=== PATIENT | female | born 1950 | race Caucasian/White ===

== ENCOUNTER 2023-12-27 15:14 | Observation (INO) | payer MEDICARE ==
[2023-12-27] MEDS ORDERED: BABY ASPIRIN 81 MG CHEW ONE (15:41)
[2023-12-27] MEDS: BABY ASPIRIN 81 MG CHEW PO ONE (15:44)
[2023-12-27 16:18] LABS: Absolute Neutrophil Ct (ANC) 3.98 x10^3/uL (1.56-6.13); BASOPHIL % 0.6 % (0.1-1.2); Basophil (Absolute #) 0.04 x10^3/uL (0.01-0.08); Eosinophil % 1.3 % (0.7-5.8); Eosinophil (Absolute #) 0.09 x10^3/uL (0.04-0.36); Hematocrit 37.8 % (34.1-44.9); Hemoglobin 12.3 g/dL (11.2-15.7); IMMATURE GRAN # 0.01 x10^3u/L (0.001-0.031); IMMATURE GRAN % 0.1 % (0.001-0.429); Lymphocyte (Absolute #) 2.49 x10^3/uL (1.18-3.74); Lymphocytes % 34.9 % (19.3-51.7); Mean Cell Volume 94.5 fL (79.4-94.8); Mean Corpuscular Hemoglobin 30.8 pg (25.6-32.2); Mean Corpuscular Hgb Concent. 32.5 g/dL (32.2-35.5); Mean Platelet Volume 9.3 fL (9.4-12.3); Monocyte (Absolute #) 0.53 x10^3/uL (0.24-0.86); Monocytes % 7.4 % (4.7-12.5); Neutrophil % 55.7 % (34.0-71.1); Platelet Count 375 x10^3/uL (182-369); Red Cell Distribution Width 13.9 % (11.7-14.4); White Blood Count 7.1 x10^3/uL (3.98-10.04)
--- NOTE | 2023-12-27 16:28 | ERPHSYRPT ---
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, states that all her valves leak and they cannot replace them, pulses normal, skin ashen in color, denies N&V, states that she gets extremely short of breath when her chest pain begins, no edema noted, pt states that her heart rate is always in the 80's but today it is in the 40's, architectural manager is Leopoldo Badillo;; at the [facility] [phone] Physician History: 73-year-old female with history of coronary artery disease with stenting, aortic stenosis, cardiac injury secondary to radiations for Hodgkin's lymphoma presented in the ER with 2 to 3 days history of substernal chest pain moderate to severe sharp with associated shortness of breath at times of chest pain. Patient was having earlier moderate intensity substernal chest pain, took 2 nitros and her pain is completely resolved now. Denies any difficulty breathing at present. No chest pain currently. Denies any significant aggravating factors for chest pain. No recent cardiac cath or stress test done. No fever chills or cough reported. Aspirin Treatment Today: unknown Allergies/Adverse Reactions: No Known Drug Allergies Allergy (Verified 12/27/23 15:32) Home Medications: Aspirin 81 mg PO DAILY 12/27/23 [History] Clopidogrel Bisulfate [Clopidogrel] 75 mg PO DAILY 12/27/23 [History] Isosorbide Mononitrate [Isosorbide Mononitrate ER] 30 mg PO HS 12/27/23 [History] Metoprolol Succinate 100 mg [Toprol Xl 100 MG] 100 mg PO BID 12/27/23 [History] PANTOPRAZOLE 40 mg Tablet [Protonix 40MG Tablet] 40 mg PO QAM 12/27/23 [History] Rosuvastatin Calcium 5 mg PO HS 12/27/23 [History] Torsemide 20 mg [Demadex 20 mg] 20 mg PO DAILY 12/27/23 [History] Hx Influenza Vaccination/Date Given: Yes Hx Pneumococcal Vaccination/Date Given: Yes Immunizations Up to Date: Yes Travel Risk - International Travel Have you traveled outside of the country in past 3 weeks: No - Emerging Infectious Disease Are you exhibiting symptoms associated with any current EIDs: No - Review of Systems Constitutional: No Symptoms Eyes: No Symptoms Ears, Nose, & Throat: No Symptoms Respiratory: Dyspnea Cardiac: Chest Pain Abdominal/Gastrointestinal: No Symptoms Genitourinary Symptoms: No Symptoms Musculoskeletal: No Symptoms Skin: No Symptoms Neurological: No Symptoms Endocrine: No Symptoms Hematologic/Lymphatic: No Symptoms Immunological/Allergic: No Symptoms - Past Medical History Pertinent Past Medical History: Yes Cardiac History: Other Other Medical History: hodgkins, 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 - Past Surgical History Past Surgical History: Yes Cardiac: CABG Gastrointestinal: Cholecystectomy Female Surgical History: Hysterectomy - Social History Smoking Status: Never smoker Exposure to second hand smoke: No Drug Use: none - Social Determinants of Health Will the patient participate in the screening: Yes Do you worry about a steady place to live?: No Do you have any problems with any of the following?: No known problems In the past 12 months,have you had to go without utilities?: No Transportation Issues: No Has anyone in your support network made you feel unsafe?: No Have you or anyone in your house had to go without enough: No - Nursing Vital Signs Nursing Vital Signs: Initial Vital Signs Temperature 97.6 F 12/27/23 15:15 Pulse Rate 51 L 12/27/23 15:15 Respiratory Rate 20 12/27/23 15:15 Blood Pressure 166/58 12/27/23 15:15 O2 Sat by Pulse Oximetry 99 12/27/23 15:15 Pain Scale Pain Intensity 0 - Physical Exam General Appearance: no apparent distress Eye Exam: PERRL/EOMI Ears, Nose, Throat Exam: normal ENT inspection Neck Exam: normal inspection, supple, full range of motion Respiratory Exam: normal breath sounds, lungs clear, No chest tenderness Cardiovascular Exam: normal heart sounds, bradycardia Gastrointestinal/Abdomen Exam: soft, normal bowel sounds, No tenderness Back Exam: normal inspection, normal range of motion Extremity Exam: normal inspection, normal range of motion Neurologic Exam: alert, oriented x 3, cooperative Skin Exam: normal color SpO2 Interpretation: normal SpO2: 96 O2 Delivery: Room Air - Course EKG Interpreted by Me: RATE (50), Sinus Rasta, NORMAL AXIS, prolonged QT interval, Non-specific ST Changes Ordered Tests: Active Orders 24 hr Category Date Time Status Bedrest ROUTINE Activity 12/27/23 20:09 Active Up With Assistance ROUTINE Activity 12/27/23 20:09 Active Call Admit Doctor for Orders ON ADMISSION Care 12/27/23 20:09 Active Delivery Tech STAT Care 12/27/23 15:28 Completed Code Status Order ROUTINE Care 12/27/23 20:09 Active EKG-ER Only STAT Care 12/27/23 15:27 Completed Fall Protocol ROUTINE Care 12/27/23 20:09 Active IV Insertion STAT Care 12/27/23 15:[address] in Observation ROUTINE Care 12/27/23 20:09 Active Telemetry q6h Care 12/27/23 20:09 Active Heart-Healthy Diet Diet 12/28/23 Breakfast Active CHEST 1 VIEW (PORTABLE) Stat Exams 12/27/23 15:28 Completed CBC W DIFF Stat Lab 12/27/23 16:00 Completed CMP Stat Lab 12/27/23 16:00 Completed NT PRO BNPII Stat Lab 12/27/23 16:00 Completed TROPONIN Q4H Lab 12/27/23 16:00 Completed TROPONIN Q4H Lab 12/27/23 19:25 Completed TROPONIN Q4H Lab 12/27/23 23:30 Ordered Pulse Oximetry CONTINUOUS RT 12/27/23 20:09 Active Transfer Order Routine Transfer 12/27/23 Completed Medication Summary Generic Name Dose Route Start Last Admin Trade Name Nancie PRN Reason Stop Dose Admin Aspirin 81 mg 12/28/23 10:00 Aspirin 81 Mg Tab.Chew PO 01/27/24 09:59 DAILY [facility] Clopidogrel Bisulfate 75 mg 12/28/23 10:00 Clopidogrel Bisulfate 75 Mg Tablet PO 01/27/24 09:59 DAILY [facility] Enoxaparin Sodium 40 mg 12/28/23 10:00 Enoxaparin Sodium 40 Mg/0.4 Ml Syringe SQ 01/27/24 09:59 DAILY [facility] Isosorbide Mononitrate 30 mg 12/27/23 22:00 Isosorbide Mononitrate 30 Mg Tab PO 01/26/24 21:59 HS [facility] Metoprolol Succinate 100 mg 12/27/23 22:00 Metoprolol Succinate 100 Mg Tablet.Sa PO 01/26/24 21:59 BID MIR[facility]DA Non-Formulary Medication 5 mg 12/27/23 22:00 Rosuvastatin Calcium [Rosuvastatin Calcium] PO 01/26/24 21:59 HS MIR[facility] Pantoprazole Sodium 40 mg 12/28/23 10:00 Protonix (Pantoprazole) 40 Mg Tablet PO 01/27/24 09:59 QAM [facility] Torsemide 20 mg 12/28/23 10:00 Torsemide 20 Mg Tablet PO 01/27/24 09:59 DAILY [facility] Discontinued Medications Generic Name Dose Route Start Last Admin Trade Name Freq PRN Reason Stop Dose Admin Aspirin 324 mg 12/27/23 15:27 12/27/23 15:44 Aspirin 81 Mg Tab.Chew PO 12/27/23 15:28 324 mg STAT ONE Administration Aspirin Confirm 12/27/23 15:41 Aspirin 81 Mg Tab.Chew Administered 12/27/23 15:42 Dose 324 mg .ROUTE .STK-MED ONE Metoprolol Succinate Confirm 12/27/23 21:59 Metoprolol Succinate 50 Mg Tablet.Sa Administered 12/27/23 22:00 Dose 100 mg PO .STK-MED ONE Lab/Rad Data: Laboratory Result Diagrams 12/27/23 16:00 12/27/23 16:00 Laboratory Results 12/27/23 12/27/23 12/27/23 Range/Units 19:25 16:00 16:00 WBC (3.98-10.04) x10^3/uL RBC (3.93-5.22) x10^6/uL Hgb (11.2-15.7) g/dL Hct (34.1-44.9) % MCV (79.4-94.8) fL MCH (25.6-32.2) pg MCHC (32.2-35.5) g/dL RDW (11.7-14.4) % Plt Count (182-369) x10^3/uL MPV (9.4-12.3) fL Gran % (34.0-71.1) % Immature Gran % (Auto) (0.001-0.429) % Nucleat RBC Rel Count (0.00-0.2) % Eos # (Auto) (0.04-0.36) x10^3/uL Immature Gran # (Auto) (0.001-0.031) x10^3u/L Absolute Lymphs (auto) (1.18-3.74) x10^3/uL Absolute Monos (auto) (0.24-0.86) x10^3/uL Absolute Nucleated RBC (0.00-0.012) x10^3u/L Lymphocytes % (19.3-51.7) % Monocytes % (4.7-12.5) % Eosinophils % (0.7-5.8) % Basophils % (0.1-1.2) % Absolute Granulocytes (1.56-6.13) x10^3/uL Basophils # (0.01-0.08) x10^3/uL Sodium 140 (135-145) mmol/L Potassium 3.4 L (3.5-5.1) mmol/L Chloride 104 (98-107) mmol/L Carbon Dioxide 25 (22-30) mmol/L Anion Gap 14.1 (5-15) MEQ/L BUN 18 H (7-17) mg/dL Creatinine 0.90 (0.52-1.04) mg/dL Estimated GFR 68.4 ML/MIN Glucose 143 H (74-106) mg/dL Calcium 9.6 (8.4-10.2) mg/dL Total Bilirubin 0.50 (0.2-1.3) mg/dL AST 29 (14-36) U/L ALT 18 (0-35) U/L Alkaline Phosphatase 83 (38-126) U/L Troponin I < 0.012 < 0.012 (0.000-0.033) ng/mL NT-Pro-B Natriuret Pep 860 (<300) pg/mL Serum Total Protein 7.1 (6.3-8.2) g/dL Albumin 4.1 (3.5-5.0) g/dL 12/27/23 Range/Units 16:00 WBC 7.1 (3.98-10.04) x10^3/uL RBC 4.00 (3.93-5.22) x10^6/uL Hgb 12.3 (11.2-15.7) g/dL Hct 37.8 (34.1-44.9) % MCV 94.5 (79.4-94.8) fL MCH 30.8 (25.6-32.2) pg MCHC 32.5 (32.2-35.5) g/dL RDW 13.9 (11.7-14.4) % Plt Count 375 H (182-369) x10^3/uL MPV 9.3 L (9.4-12.3) fL Gran % 55.7 (34.0-71.1) % Immature Gran % (Auto) 0.1 (0.001-0.429) % Nucleat RBC Rel Count 0.0 (0.00-0.2) % Eos # (Auto) 0.09 (0.04-0.36) x10^3/uL Immature Gran # (Auto) 0.01 (0.001-0.031) x10^3u/L Absolute Lymphs (auto) 2.49 (1.18-3.74) x10^3/uL Absolute Monos (auto) 0.53 (0.24-0.86) x10^3/uL Absolute Nucleated RBC 0.00 (0.00-0.012) x10^3u/L Lymphocytes % 34.9 (19.3-51.7) % Monocytes % 7.4 (4.7-12.5) % Eosinophils % 1.3 (0.7-5.8) % Basophils % 0.6 (0.1-1.2) % Absolute Granulocytes 3.98 (1.56-6.13) x10^3/uL Basophils # 0.04 (0.01-0.08) x10^3/uL Sodium (135-145) mmol/L Potassium (3.5-5.1) mmol/L Chloride (98-107) mmol/L Carbon Dioxide (22-30) mmol/L Anion Gap (5-15) MEQ/L BUN (7-17) mg/dL Creatinine (0.52-1.04) mg/dL Estimated GFR ML/MIN Glucose (74-106) mg/dL Calcium (8.4-10.2) mg/dL Total Bilirubin (0.2-1.3) mg/dL AST (14-36) U/L ALT (0-35) U/L Alkaline Phosphatase (38-126) U/L Troponin I (0.000-0.033) ng/mL NT-Pro-B Natriuret Pep (<300) pg/mL Serum Total Protein (6.3-8.2) g/dL Albumin (3.5-5.0) g/dL - Progress Progress: improved, re-examined Air Movement: good Progress Note: 12/27/23 17:37 73-year-old is evaluated for intermittent chest pain for the last couple of days. She had pain earlier and resolved after taking 2 nitros. Patient is given full dose aspirin. EKG is sinus bradycardia with no acute ST elevations or depressions. Chest x-ray negative for any acute cardiopulmonary findings reviewed by me, official report is pending. Normal white count, fairly unremarkable chemistries and negative initial troponin. Patient has multiple risk factors for CAD and does not have any recent cardiac workup done, would benefit with observation and trending of cardiac enzymes and possible cardiology consult. Discussed with Dr. Mills, reviewed history, workup and patient is being admitted for observation. I have discussed the results of workup with patient and family and plan of observation admission which they understand and agree. Blood Culture(s) Obtained: No Antibiotics given: No Discussed with Dr.: Other (Dr. Mills hospitalist) Will see patient in: hospital (observation) Counseled pt/family regarding: lab results, diagnosis, need for follow-up, rad results Medical Desision Making - Independent Historian Additional History obtained from: Spouse - Discussion of managment Care discussed with:: specialist Reviewed:: Test results Agreed on:: Treatment plan, place in obs Will see patient: in hospital - Diagnostic Testing Diagnostic test were ordered, analyzed, and reviewed by me: Yes Radiological Interpretation: Interpreted by me, Reviewed by me - Risk of complications The pt has a mod risk of morbidity or mortality based on: Need for prescription drug management The pt has a high risk of morbidity or mortality based on: Decision regarding hospitilization or escalation of hosp level of care - Departure Departure Disposition: Observation Clinical Impression: Chest pain, rule out acute myocardial infarction Condition: Stable Critical Care Time: No
[2023-12-27 16:41] LABS: ALBUMIN 4.1 g/dL (3.5-5.0); ANION GAP 14.1 MEQ/L (5-15); BILIRUBIN,TOTAL 0.5 mg/dL (0.2-1.3); Calcium 9.6 mg/dL (8.4-10.2); Creatinine 1 0.9 mg/dL (0.52-1.04); EST GLOMERULAR FILTRATION RATE 68.4 ML/MIN; Potassium 3.4 mmol/L (3.5-5.1); Total Protein 7.1 g/dL (6.3-8.2)
--- NOTE | 2023-12-27 19:16 | XRAY ---
Indication: Chest pain. Comparison: May 28, 2007 Portable chest inflated and clear. Heart not enlarged again with CABG. Bony thorax intact with now osteopenia and moderate degenerative changes, especially left shoulder. Impression: Nonacute chest with chronic features.
--- NOTE | 2023-12-27 21:42 | PCM.HP ---
History of Present Illness - Chief Complaint Chief Complaint: Chest pain rule out acute HI Date: 12/27/23 History of Present Illness: 73 years old very pleasant with past medical history significant for hypertension, Aortic valve stenosis, coronary artery disease s/p stenting and CABG, Hodgkin lymphoma s/p radiation prior history of stroke with residual left- sided weakness lives with her quite independent in her daily life came to the ER complaining of chest pain that started 4 days ago. She told me that she is having some off-and-on chest pain but not as severe as it started this time. It went up to more than 10 with sudden onset of shortness of breath as well. She took nitro that relieved her pain and it got better but reoccurred again next day. She further told me that her shortness of breath happened upon exertion otherwise at rest she is feeling comfortably fine. Her chest pain is completely gone by the time she came to ER. In the ER her vital signs were stable. All ER workup was essentially negative troponin was negative. Chest x-ray remained unremarkable. Patient admitted to rule out acute coronary syndrome. - Review of Systems All Other Systems: Reviewed and Negative (14 systems reviewed and marked ve except mentioned in CIRCLE) Medications & Allergies Home Medications: Home Medication List Aspirin 81 mg PO DAILY 12/27/23 [History Confirmed 12/27/23] Clopidogrel Bisulfate [Clopidogrel] 75 mg PO DAILY 12/27/23 [History Confirmed 12/27/23] Isosorbide Mononitrate [Isosorbide Mononitrate ER] 30 mg PO HS 12/27/23 [History Confirmed 12/27/23] Metoprolol Succinate 100 mg [Toprol Xl 100 MG] 100 mg PO BID 12/27/23 [History Confirmed 12/27/23] PANTOPRAZOLE 40 mg Tablet [Protonix 40MG Tablet] 40 mg PO QAM 12/27/23 [History Confirmed 12/27/23] Rosuvastatin Calcium 5 mg PO HS 12/27/23 [History Confirmed 12/27/23] Torsemide 20 mg [Demadex 20 mg] 20 mg PO DAILY 12/27/23 [History Confirmed 12/27/23] Allergies/Adverse Reactions: Allergies Allergy/AdvReac Type Severity Reaction Status Date / Time No Known Drug Allergies Allergy Verified 07/04/24 15:32 - Past Medical History Past Medical History: Yes Neurological History: Stroke ENT History: Cataracts Cardiac History: Congestive Heart Failure, Coronary Artery Disease, High Cholesterol, Hypertension, Other Respiratory History: No Pertinent History Endocrine Medical History: No Pertinent History Musculoskelatal History: No Pertinent History GI Medical History: Gallbladder Disease History: No Pertinent History Pyscho-Social History: No Pertinent History Reproductive Disorders: No Pertinent History Comment: hodgkins- 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 - Past Surgical History Past Surgical History: Yes Neuro Surgical History: No Pertinent History Cardiac History: CABG, Cardiac Stent Respiratory Surgery: No Pertinent History GI Surgical History: Cholecystectomy Female Surgical History: Hysterectomy Other Surgical History: exploritory surgery- for hodgkins Significant Family History: no pertinent family hx (No family history pertaining to this admission reported.) - Social History Smoking Status: Never smoker Exposure to second hand smoke: No Alcohol: None Drug Use: none - Social Determinants of Health Will the patient participate in the screening: Yes Do you worry about a steady place to live?: No Do you have any problems with any of the following?: No known problems In the past 12 months,have you had to go without utilities?: No Have you or anyone in your house had to go without enough: No Transportation Issues: No Has anyone in your support network made you feel unsafe?: No Does the patient want assistance with any of the above?: No - Physical Exam Vital Signs: Vital Signs - 24 hr Temp Pulse Resp BP BP Pulse Ox 12/27/23 20:43 97.1 F 49 L 15 136/65 95 12/27/23 19:30 46 L 16 140/54 99 12/27/23 19:01 45 L 12 129/49 96 12/27/23 18:31 45 L 17 131/46 95 12/27/23 18:01 45 L 14 133/49 95 12/27/23 17:40 96 12/27/23 17:31 46 L 18 134/46 95 12/27/23 17:01 46 L 17 142/54 96 12/27/23 16:31 49 L 20 132/69 94 L 12/27/23 16:01 48 L 17 96 12/27/23 16:00 49 L 16 95 12/27/23 15:50 50 L 17 96 12/27/23 15:48 50 L 16 96 12/27/23 15:15 97.6 F 51 L 20 166/58 99 Additional Findings: HEENT Old aged, average built in no distress NECK Supple,no thyromegaly, RESP Bilateral equal air entry without Crepts/Wheezes heard GIT Soft non tender,non distended Skin, No rah, no Bruises LEGS No Edema PSYCH Normal,m ood, judgement and insight NEURO AOX3, no focal deficit 12/27/23 21:39 Results - Labs Lab/Micro Results: Lab Results-Last 24 Hours 12/27/23 12/27/23 12/27/23 Range/Units 16:00 16:00 16:00 WBC 7.1 (3.98-10.04) x10^3/uL RBC 4.00 (3.93-5.22) x10^6/uL Hgb 12.3 (11.2-15.7) g/dL Hct 37.8 (34.1-44.9) % MCV 94.5 (79.4-94.8) fL MCH 30.8 (25.6-32.2) pg MCHC 32.5 (32.2-35.5) g/dL RDW 13.9 (11.7-14.4) % Plt Count 375 H (182-369) x10^3/uL MPV 9.3 L (9.4-12.3) fL Gran % 55.7 (34.0-71.1) % Immature Gran % (Auto) 0.1 (0.001-0.429) % Nucleat RBC Rel Count 0.0 (0.00-0.2) % Eos # (Auto) 0.09 (0.04-0.36) x10^3/uL Immature Gran # (Auto) 0.01 (0.001-0.031) x10^3u/L Absolute Lymphs (auto) 2.49 (1.18-3.74) x10^3/uL Absolute Monos (auto) 0.53 (0.24-0.86) x10^3/uL Absolute Nucleated RBC 0.00 (0.00-0.012) x10^3u/L Lymphocytes % 34.9 (19.3-51.7) % Monocytes % 7.4 (4.7-12.5) % Eosinophils % 1.3 (0.7-5.8) % Basophils % 0.6 (0.1-1.2) % Absolute Granulocytes 3.98 (1.56-6.13) x10^3/uL Basophils # 0.04 (0.01-0.08) x10^3/uL Sodium 140 (135-145) mmol/L Potassium 3.4 L (3.5-5.1) mmol/L Chloride 104 (98-107) mmol/L Carbon Dioxide 25 (22-30) mmol/L Anion Gap 14.1 (5-15) MEQ/L BUN 18 H (7-17) mg/dL Creatinine 0.90 (0.52-1.04) mg/dL Estimated GFR 68.4 ML/MIN Glucose 143 H (74-106) mg/dL Calcium 9.6 (8.4-10.2) mg/dL Total Bilirubin 0.50 (0.2-1.3) mg/dL AST 29 (14-36) U/L ALT 18 (0-35) U/L Alkaline Phosphatase 83 (38-126) U/L Troponin I < 0.012 (0.000-0.033) ng/mL NT-Pro-B Natriuret Pep 860 (<300) pg/mL Serum Total Protein 7.1 (6.3-8.2) g/dL Albumin 4.1 (3.5-5.0) g/dL 12/27/23 Range/Units 19:25 WBC (3.98-10.04) x10^3/uL RBC (3.93-5.22) x10^6/uL Hgb (11.2-15.7) g/dL Hct (34.1-44.9) % MCV (79.4-94.8) fL MCH (25.6-32.2) pg MCHC (32.2-35.5) g/dL RDW (11.7-14.4) % Plt Count (182-369) x10^3/uL MPV (9.4-12.3) fL Gran % (34.0-71.1) % Immature Gran % (Auto) (0.001-0.429) % Nucleat RBC Rel Count (0.00-0.2) % Eos # (Auto) (0.04-0.36) x10^3/uL Immature Gran # (Auto) (0.001-0.031) x10^3u/L Absolute Lymphs (auto) (1.18-3.74) x10^3/uL Absolute Monos (auto) (0.24-0.86) x10^3/uL Absolute Nucleated RBC (0.00-0.012) x10^3u/L Lymphocytes % (19.3-51.7) % Monocytes % (4.7-12.5) % Eosinophils % (0.7-5.8) % Basophils % (0.1-1.2) % Absolute Granulocytes (1.56-6.13) x10^3/uL Basophils # (0.01-0.08) x10^3/uL Sodium (135-145) mmol/L Potassium (3.5-5.1) mmol/L Chloride (98-107) mmol/L Carbon Dioxide (22-30) mmol/L Anion Gap (5-15) MEQ/L BUN (7-17) mg/dL Creatinine (0.52-1.04) mg/dL Estimated GFR ML/MIN Glucose (74-106) mg/dL Calcium (8.4-10.2) mg/dL Total Bilirubin (0.2-1.3) mg/dL AST (14-36) U/L ALT (0-35) U/L Alkaline Phosphatase (38-126) U/L Troponin I < 0.012 (0.000-0.033) ng/mL NT-Pro-B Natriuret Pep (<300) pg/mL Serum Total Protein (6.3-8.2) g/dL Albumin (3.5-5.0) g/dL - Radiology Impressions Radiology Exams & Impressions: Radiology Procedures Category Date Time Status CHEST 1 VIEW (PORTABLE) Stat Exams 12/27/23 15:28 Completed ECHO W/2D AND DOPPLER [US] Routine Exams 12/27/23 21:35 Ordered Assessment/Plan (1) Chest pain, rule out acute myocardial infarction Current Visit: Yes Status: Acute Code(s): R07.9 - CHEST PAIN, UNSPECIFIED (2) Coronary artery disease Current Visit: Yes Status: Acute Code(s): I25.10 - ATHSCL HEART DISEASE OF [place] CORONARY ARTERY W/O ANG PCTRS (3) History of stroke Current Visit: Yes Status: Acute Code(s): Z86.73 - PRSNL HX OF TIA (TIA), AND CEREB INFRC W/O RESID DEFICITS Telemedicine Encounter - Telemedicine Encounter Telemedicine Encounter: "The entirety of this encounter was performed via Telemedicine" This visit was performed using real-time audio and video connection between my location and thepatients locationwith the assistance of a surrogateat the patients location. Written or verbal consent was obtained from the patient/guardian to perform this visit using[employer] Mult[employer] technology. Any patient questions regarding the telemedicine interaction were answered. Acute chest pain patient admitted with chest pain for 2 to 3 days duration Currently chest pain-free Troponin x 2 is negative Keep admit on telemetry Will consult cardiology in the morning Will follow-up echocardiogram Shortness of breath Rest x-ray unremarkable Ruled out for ACS Will check D-dimer if running high will rule out for pulmonary embolism Follow-up echocardiogram, Last ECHO wasd one back in 02/2023 Resumed home Torsemide Coronary artery disease/aortic stenosis S/p stenting, CABG Continue aspirin Plavix and beta-irish Hodgkin's lymphoma S/p radiation Prior history of stroke With some residual left-sided weakness not significant Continue aspirin Plavix and statins Hyperlipidemia Continue statins GERD Continue with pantoprazole DVT prophylaxis SCD/Lovenox GI prophylaxis pantoprazole CODE STATUS full Discharge planning plan clinical stability. I have reviewed patient lab work and imaging in detail question and concerns were addressed
[2023-12-27] MEDS ORDERED: Toprol Xl 50 MG PO ONE (21:59)
[2023-12-27] MEDS ORDERED: Imdur 30 MG ONE (22:00)
[2023-12-27] MEDS: Toprol Xl 100 MG PO SCH (22:20)
[2023-12-27] MEDS: PLAVIX Tablet PO SCH (22:20)
[2023-12-27] MEDS: Imdur 30 MG PO SCH (22:24)
[2023-12-27] MEDS: NON-FORMULARY ITEM (Rosuvastatin Calcium [Rosuvastatin Calcium] 5 MG Tablet) PO SCH (22:27)
[2023-12-28 05:02] LABS: Hematocrit 37.5 % (34.1-44.9); Hemoglobin 12.2 g/dL (11.2-15.7); Mean Cell Volume 96.2 fL (79.4-94.8); Mean Corpuscular Hemoglobin 31.3 pg (25.6-32.2); Mean Corpuscular Hgb Concent. 32.5 g/dL (32.2-35.5); Mean Platelet Volume 9.3 fL (9.4-12.3); Platelet Count 343 x10^3/uL (182-369); Red Cell Distribution Width 13.8 % (11.7-14.4); White Blood Count 8.6 x10^3/uL (3.98-10.04)
[2023-12-28 05:44] LABS: Calcium 9.5 mg/dL (8.4-10.2); Creatinine 1 1.06 mg/dL (0.52-1.04); EST GLOMERULAR FILTRATION RATE 56.2 ML/MIN; TSH, 3RD Generation 4.894 mIU/L (0.470-4.680)
[2023-12-28 05:51] LABS: ANION GAP 10.6 MEQ/L (5-15); Potassium 3.6 mmol/L (3.5-5.1)
[2023-12-28 06:52] VITALS: BP 144/61; PULSE 42; RESP 13; TEMP 97; O2SAT 96
--- NOTE | 2023-12-28 08:32 | PCM.DS ---
Discharge Summary Date of Admission: 12/27/23 20:00 Date of Discharge: 12/28/23 Admitting Physician: LANI DURAN MD Primary Care Provider: JOSE MICHELLE Allergies Allergies No Known Drug Allergies Allergy (Verified 12/27/23 15:32) Hospital Summary - Hospital Course Hospital Course: 12/28/23 73 years old very pleasant with past medical history significant for hypertension, Aortic valve stenosis, coronary artery disease s/p stenting and CABG, Hodgkin lymphoma s/p radiation prior history of stroke with residual left- sided weakness. She lives with her , quite independent in her daily life, came to the ER on 12/27/23 complaining of chest pain that started 4 days ago. Reported some off-and-on chest pain but not as severe as it started this time. It went up to more than 10 with sudden onset of shortness of breath as well. She took nitro that relieved her pain and it got better but reoccurred again next day. Shortness of breath happened upon exertion otherwise at rest she is feeling comfortably fine. Her chest pain was completely gone by the time she came to ER. In the ER her vital signs were stable. All ER workup was essentially negative troponin x3 was negative. Chest x-ray remained unremarkable. Patient admitted to rule out acute coronary syndrome. Echo pending. She is concerned about her low HR and she does take a beta irish. Today she explained she has slight left side chest pain w/o radiation at rest, otherwise doing well and SOB resolved. Discussed labs and radiology findings. Discussed she will need to call billing administrator for an OP stress test and appointment as soon as possible. She will call today after d/c she reported. She denies SOB, abd. pain, N/V/D. - Vitals & Intake/Output Vital Signs: Vital Signs Temperature 97 F 12/28/23 06:50 Pulse Rate 42 L 12/28/23 06:50 Respiratory Rate 13 12/28/23 06:50 Blood Pressure 144/61 12/28/23 06:50 O2 Sat by Pulse Oximetry 96 12/28/23 07:58 Intake & Output: Intake & Output 12/25/23 12/26/23 12/27/23 12/28/23 11:59 11:59 11:59 11:59 Intake Total 420 Balance 420 Weight 88.7 kg - Lab Result Diagrams: 12/28/23 04:58 07/05/24 04:58 Lab Results-Last 24 Hrs: Lab Results-Last 24 Hours 12/27/23 12/27/23 12/27/23 Range/Units 16:00 16:00 16:00 WBC 7.1 (3.98-10.04) x10^3/uL RBC 4.00 (3.93-5.22) x10^6/uL Hgb 12.3 (11.2-15.7) g/dL Hct 37.8 (34.1-44.9) % MCV 94.5 (79.4-94.8) fL MCH 30.8 (25.6-32.2) pg MCHC 32.5 (32.2-35.5) g/dL RDW 13.9 (11.7-14.4) % Plt Count 375 H (182-369) x10^3/uL MPV 9.3 L (9.4-12.3) fL Gran % 55.7 (34.0-71.1) % Immature Gran % (Auto) 0.1 (0.001-0.429) % Nucleat RBC Rel Count 0.0 (0.00-0.2) % Eos # (Auto) 0.09 (0.04-0.36) x10^3/uL Immature Gran # (Auto) 0.01 (0.001-0.031) x10^3u/L Absolute Lymphs (auto) 2.49 (1.18-3.74) x10^3/uL Absolute Monos (auto) 0.53 (0.24-0.86) x10^3/uL Absolute Nucleated RBC 0.00 (0.00-0.012) x10^3u/L Lymphocytes % 34.9 (19.3-51.7) % Monocytes % 7.4 (4.7-12.5) % Eosinophils % 1.3 (0.7-5.8) % Basophils % 0.6 (0.1-1.2) % Absolute Granulocytes 3.98 (1.56-6.13) x10^3/uL Basophils # 0.04 (0.01-0.08) x10^3/uL D-Dimer (0.0-0.50) mg/L Sodium 140 (135-145) mmol/L Potassium 3.4 L (3.5-5.1) mmol/L Chloride 104 (98-107) mmol/L Carbon Dioxide 25 (22-30) mmol/L Anion Gap 14.1 (5-15) MEQ/L BUN 18 H (7-17) mg/dL Creatinine 0.90 (0.52-1.04) mg/dL Estimated GFR 68.4 ML/MIN Glucose 143 H (74-106) mg/dL Calcium 9.6 (8.4-10.2) mg/dL Total Bilirubin 0.50 (0.2-1.3) mg/dL AST 29 (14-36) U/L ALT 18 (0-35) U/L Alkaline Phosphatase 83 (38-126) U/L Troponin I < 0.012 (0.000-0.033) ng/mL NT-Pro-B Natriuret Pep 860 (<300) pg/mL Serum Total Protein 7.1 (6.3-8.2) g/dL Albumin 4.1 (3.5-5.0) g/dL TSH 3rd Generation (0.470-4.680) mIU/L 12/27/23 12/27/23 12/27/23 Range/Units 19:25 22:36 22:36 WBC (3.98-10.04) x10^3/uL RBC (3.93-5.22) x10^6/uL Hgb (11.2-15.7) g/dL Hct (34.1-44.9) % MCV (79.4-94.8) fL MCH (25.6-32.2) pg MCHC (32.2-35.5) g/dL RDW (11.7-14.4) % Plt Count (182-369) x10^3/uL MPV (9.4-12.3) fL Gran % (34.0-71.1) % Immature Gran % (Auto) (0.001-0.429) % Nucleat RBC Rel Count (0.00-0.2) % Eos # (Auto) (0.04-0.36) x10^3/uL Immature Gran # (Auto) (0.001-0.031) x10^3u/L Absolute Lymphs (auto) (1.18-3.74) x10^3/uL Absolute Monos (auto) (0.24-0.86) x10^3/uL Absolute Nucleated RBC (0.00-0.012) x10^3u/L Lymphocytes % (19.3-51.7) % Monocytes % (4.7-12.5) % Eosinophils % (0.7-5.8) % Basophils % (0.1-1.2) % Absolute Granulocytes (1.56-6.13) x10^3/uL Basophils # (0.01-0.08) x10^3/uL D-Dimer 0.49 (0.0-0.50) mg/L Sodium (135-145) mmol/L Potassium (3.5-5.1) mmol/L Chloride (98-107) mmol/L Carbon Dioxide (22-30) mmol/L Anion Gap (5-15) MEQ/L BUN (7-17) mg/dL Creatinine (0.52-1.04) mg/dL Estimated GFR ML/MIN Glucose (74-106) mg/dL Calcium (8.4-10.2) mg/dL Total Bilirubin (0.2-1.3) mg/dL AST (14-36) U/L ALT (0-35) U/L Alkaline Phosphatase (38-126) U/L Troponin I < 0.012 < 0.012 (0.000-0.033) ng/mL NT-Pro-B Natriuret Pep (<300) pg/mL Serum Total Protein (6.3-8.2) g/dL Albumin (3.5-5.0) g/dL TSH 3rd Generation (0.470-4.680) mIU/L 12/28/23 12/28/23 Range/Units 04:58 04:58 WBC 8.6 (3.98-10.04) x10^3/uL RBC 3.90 L (3.93-5.22) x10^6/uL Hgb 12.2 (11.2-15.7) g/dL Hct 37.5 (34.1-44.9) % MCV 96.2 H (79.4-94.8) fL MCH 31.3 (25.6-32.2) pg MCHC 32.5 (32.2-35.5) g/dL RDW 13.8 (11.7-14.4) % Plt Count 343 (182-369) x10^3/uL MPV 9.3 L (9.4-12.3) fL Gran % (34.0-71.1) % Immature Gran % (Auto) (0.001-0.429) % Nucleat RBC Rel Count (0.00-0.2) % Eos # (Auto) (0.04-0.36) x10^3/uL Immature Gran # (Auto) (0.001-0.031) x10^3u/L Absolute Lymphs (auto) (1.18-3.74) x10^3/uL Absolute Monos (auto) (0.24-0.86) x10^3/uL Absolute Nucleated RBC (0.00-0.012) x10^3u/L Lymphocytes % (19.3-51.7) % Monocytes % (4.7-12.5) % Eosinophils % (0.7-5.8) % Basophils % (0.1-1.2) % Absolute Granulocytes (1.56-6.13) x10^3/uL Basophils # (0.01-0.08) x10^3/uL D-Dimer (0.0-0.50) mg/L Sodium 140 (135-145) mmol/L Potassium 3.6 (3.5-5.1) mmol/L Chloride 104 (98-107) mmol/L Carbon Dioxide 29 (22-30) mmol/L Anion Gap 10.6 (5-15) MEQ/L BUN 22 H (7-17) mg/dL Creatinine 1.06 H (0.52-1.04) mg/dL Estimated GFR 56.2 ML/MIN Glucose 113 H (74-106) mg/dL Calcium 9.5 (8.4-10.2) mg/dL Total Bilirubin (0.2-1.3) mg/dL AST (14-36) U/L ALT (0-35) U/L Alkaline Phosphatase (38-126) U/L Troponin I (0.000-0.033) ng/mL NT-Pro-B Natriuret Pep (<300) pg/mL Serum Total Protein (6.3-8.2) g/dL Albumin (3.5-5.0) g/dL TSH 3rd Generation 4.894 H (0.470-4.680) mIU/L - Radiology Exams Ordered Rad Exams-Entire Visit: Radiology Procedures Category Date Time Status CHEST 1 VIEW (PORTABLE) Stat Exams 12/27/23 15:28 Completed ECHO W/2D AND DOPPLER [US] Routine Exams 12/28/23 07:00 Ordered Discharge Exam General Appearance: no apparent distress, alert Neurologic Exam: alert, oriented x 3, cooperative, normal mood/affect, nml cerebellar function, sensation nml, No motor deficits Eye Exam: PERRL, EOMI, eyes nml inspection Ears, Nose, Throat Exam: normal ENT inspection, pharynx normal, moist mucous mem branes Neck Exam: normal inspection, non-tender, supple, full range of motion Respiratory Exam: normal breath sounds, lungs clear, No respiratory distress Cardiovascular Exam: regular rate/rhythm, normal heart sounds Gastrointestinal/Abdomen Exam: soft, No tenderness, No mass Pelvic Exam: deferred Rectal Exam: deferred Back Exam: normal inspection, normal range of motion, No CVA tenderness, No vertebral tenderness Extremity Exam: normal inspection, normal range of motion Skin Exam: normal color, warm, dry Final Diagnosis/Problem List - Final Discharge Diagnosis/Problem (1) Chest pain Current Visit: Yes Status: Acute Assessment & Plan: -patient admitted with chest pain for 2 to 3 days duration and SOB - SOB resolved -light chest discomfort -Troponin x 3 negative - telemetry - echocardiogram - F/U with billing administrator for OP stress test- pt wants to make the appointment Code(s): R07.9 - CHEST PAIN, UNSPECIFIED (2) Shortness of breath Current Visit: Yes Status: Acute Assessment & Plan: -Rest x-ray unremarkable -Ruled out for ACS -Will check D-dimer if running high will rule out for pulmonary embolism- negative -Follow-up echocardiogram, Last ECHO wasd one back in 02/2023 -Resumed home Torsemide Code(s): R06.02 - SHORTNESS OF BREATH (3) Hodgkins lymphoma Current Visit: Yes Status: Chronic Assessment & Plan: -S/p radiation Code(s): C81.90 - HODGKIN LYMPHOMA, UNSPECIFIED, UNSPECIFIED SITE (4) Hyperlipidemia Current Visit: Yes Status: Chronic Assessment & Plan: - continue statin Code(s): E78.5 - HYPERLIPIDEMIA, UNSPECIFIED (5) GERD (gastroesophageal reflux disease) Current Visit: Yes Status: Chronic Assessment & Plan: - Continue with pantoprazole Code(s): K21.9 - GASTRO-ESOPHAGEAL REFLUX DISEASE WITHOUT ESOPHAGITIS (6) Coronary artery disease Current Visit: Yes Status: Chronic Assessment & Plan: - S/p stenting, CABG - Continue aspirin Plavix and beta-irish Code(s): I25.10 - ATHSCL HEART DISEASE OF [place] CORONARY ARTERY W/O ANG PCTRS (7) History of stroke Current Visit: Yes Status: Chronic Assessment & Plan: -With some residual left-sided weakness not significant -Continue aspirin Plavix and statins Code(s): Z86.73 - PRSNL HX OF TIA (TIA), AND CEREB INFRC W/O RESID DEFICITS - Discharge Discharge Date: 12/28/23 Disposition: Home, Self-Care Condition: Stable Prescriptions: Continue PANTOPRAZOLE 40 mg Tablet [Protonix 40MG Tablet] 40 mg PO QAM Metoprolol Succinate 100 mg [Toprol Xl 100 MG] 100 mg PO BID Aspirin 81 mg PO DAILY Torsemide 20 mg [Demadex 20 mg] 20 mg PO DAILY Rosuvastatin Calcium 5 mg PO HS Isosorbide Mononitrate [Isosorbide Mononitrate ER] 30 mg PO DAILY Clopidogrel Bisulfate [Clopidogrel] 75 mg PO HS Follow up with: ARNIE GREGORY MD [NON-STAFF PHY W/O PRIVILEGES] - Call for Appointment JOSE MICHELLE MD [Primary Care Provider] - Call for Appointment
[2023-12-28] MEDS ORDERED: BABY ASPIRIN 81 MG CHEW PO SCH (10:00)
[2023-12-28] MEDS: ECOTRIN 81 MG PO SCH (10:03)
[2023-12-28] MEDS: DEMADEX 20 MG PO SCH (10:03)
[2023-12-28] MEDS: Imdur 30 MG PO SCH (10:03)
[2023-12-28] MEDS: Protonix 40MG Tablet PO SCH (10:03)
[2023-12-28] MEDS: ENOXAPARIN SODIUM SQ SCH (10:04)
[2023-12-28] MEDS ORDERED: Zocor 10MG PO SCH (22:00)
[2023-12-28] MEDS ORDERED: PLAVIX Tablet PO SCH (22:00)
== END 2023-12-28 10:37 | disposition home or self-care (01) ==
LOC: ED 15:14 → MED SURG 20:00 → UNDOADMOB 20:00
PROVIDERS: ADMIT Internal Medicine; ATTEND Internal Medicine
DX: R07.9 Chest pain, unspecified (principal); I10 Essential (primary) hypertension; I25.10 Atherosclerotic heart disease of native coronary artery without angina pectoris; R06.02 Shortness of breath; C81.90 Hodgkin lymphoma, unspecified, unspecified site; E78.5 Hyperlipidemia, unspecified; K21.9 Gastro-esophageal reflux disease without esophagitis; Z95.0 Presence of cardiac pacemaker; Z86.73 Personal history of transient ischemic attack (TIA), and cerebral infarction without residual deficits; Z79.899 Other long term (current) drug therapy
CPT/HCPCS: 36000; 36415; 71045; 80048; 80053; 83880; 84443; 84484; 85025; 85027; 85379; 93005; 93041; 93268; 93306; 94760; 94762; 99284; J1650; Q3014; A9270-GY; G0378

== ENCOUNTER 2024-01-20 05:13 | Emergency (ER) | payer MEDICARE ==
--- NOTE | 2024-01-20 05:32 | ERPHSYRPT ---
- History of Present Illness Time Seen by Provider: 01/20/24 05:24 Historian: patient, family, EMS Exam Limitations: no limitations Physician History: pt has known cardiac condition in need of pacer and has been seeing in [place] for this. Some chest pressure and is on Nitro for that as well. No N or V. She awakened form sleep short of breath and called 911. Normal mental status and neuro exam ( PMHx CVA) CHest clear Ht reg without M. Abd soft nontender without mass or peritoneal signs, EMS is present as independent source for Hx. Discussed risks/benefits of testing/Tx with EKG, Trops, BNP, D DImer, Lipase, CBC, CMP, Lactate, CXR, IVF ASA, NTG, and they wish to proceed, These are ordered. results discussed. Timing/Duration: today Activities at Onset: sleep Quality: pressure Location: central Chest Pain Radiation: no radiation Severity of Pain-Max: moderate Severity of Pain-Current: moderate Associated Symptoms: shortness of breath Prior Chest Pain/Cardiac Workup: angina, recently seen/treated Nitro Today/Relief: no nitro taken today (Pt now without CP) Aspirin Treatment Today: 81 mg x 4, provided by ED Allergies/Adverse Reactions: latex Allergy (Verified 01/20/24 05:19) Home Medications: Aspirin 81 mg PO DAILY 12/27/23 [History] Clopidogrel Bisulfate [Clopidogrel] 75 mg PO HS 12/27/23 [History] Isosorbide Mononitrate [Isosorbide Mononitrate ER] 30 mg PO DAILY 12/27/23 [History] PANTOPRAZOLE 40 mg Tablet [Protonix 40MG Tablet] 40 mg PO QAM 12/27/23 [History] Rosuvastatin Calcium 5 mg PO HS 12/27/23 [History] Torsemide 20 mg [Demadex 20 mg] 20 mg PO DAILY 12/27/23 [History] Nitroglycerin 0.4 mg Tablet [Nitrostat 0.4 MG Tablet] 0.4 mg SL Q5MIN PRN MR X 3 PRN 01/20/24 [History] Hx Influenza Vaccination/Date Given: Yes Hx Pneumococcal Vaccination/Date Given: Yes Travel Risk - Emerging Infectious Disease Are you exhibiting symptoms associated with any current EIDs: No - Review of Systems Constitutional: No Fever, No Chills Eyes: No Symptoms Ears, Nose, & Throat: No Symptoms Respiratory: Dyspnea, Other, No Cough Cardiac: Chest Pain, No Edema, No Syncope Abdominal/Gastrointestinal: No Abdominal Pain, No Nausea, No Vomiting, No Diarrhea Genitourinary Symptoms: No Dysuria Musculoskeletal: No Back Pain, No Neck Pain Skin: No Rash Neurological: No Dizziness, No Focal Weakness, No Sensory Changes Psychological: No Symptoms Endocrine: No Symptoms Hematologic/Lymphatic: No Symptoms Immunological/Allergic: No Symptoms All Other Systems: Reviewed and Negative - Past Medical History Pertinent Past Medical History: Yes Neurological History: Stroke ENT History: Cataracts Cardiac History: Other Respiratory History: No Pertinent History Endocrine Medical History: No Pertinent History Musculoskeletal History: No Pertinent History GI Medical History: Gallbladder Disease History: No Pertinent History Psycho-Social History: No Pertinent History Female Reproductive Disorders: No Pertinent History Other Medical History: hodgkins, 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 - Past Surgical History Past Surgical History: Yes Neuro Surgical History: No Pertinent History Cardiac: CABG Respiratory: No Pertinent History Gastrointestinal: Cholecystectomy Female Surgical History: Hysterectomy Other Surgical History: exploritory surgery- for hodgkins Significant Family History: no pertinent family hx (No family history pertaining to this admission reported.) - Social History Smoking Status: Never smoker Exposure to second hand smoke: No Drug Use: none - Social Determinants of Health Will the patient participate in the screening: Yes Do you worry about a steady place to live?: No In the past 12 months,have you had to go without utilities?: No Transportation Issues: No Has anyone in your support network made you feel unsafe?: No Have you or anyone in your house had to go without enough: No - Nursing Vital Signs Nursing Vital Signs: Initial Vital Signs Temperature 97.1 F 01/20/24 05:14 Pulse Rate 75 01/20/24 05:14 Respiratory Rate 12 01/20/24 05:14 Blood Pressure 156/44 01/20/24 05:14 O2 Sat by Pulse Oximetry 97 01/20/24 05:14 Pain Scale Pain Intensity 4 - Physical Exam General Appearance: no apparent distress, alert Eye Exam: PERRL/EOMI, eyes nml inspection Ears, Nose, Throat Exam: normal ENT inspection, moist mucous membranes Neck Exam: normal inspection, non-tender, supple, full range of motion Respiratory Exam: normal breath sounds, lungs clear, No respiratory distress Cardiovascular Exam: regular rate/rhythm, normal heart sounds Gastrointestinal/Abdomen Exam: soft, No tenderness, No mass Pelvic Exam: deferred Rectal Exam: deferred Back Exam: normal inspection, No CVA tenderness, No vertebral tenderness Extremity Exam: normal inspection, normal range of motion Neurologic Exam: alert, oriented x 3, cooperative, normal mood/affect, sensation nml, No motor deficits Skin Exam: normal color, warm, dry SpO2 Interpretation: normal SpO2: 95 O2 Delivery: Room Air - Course Nursing assessment & vital signs reviewed: Yes EKG Interpreted by Me: NORMAL AXIS, Non-specific ST Changes, Other (third degree Ht block; IVCD) Ordered Tests: Active Orders 24 hr Category Date Time Status EKG-ER Only STAT Care 01/20/24 05:37 Active IV Insertion STAT Care 01/20/24 05:37 Active Pulse Oximetry (ED) STAT Care 01/20/24 05:39 Active CHEST 1 VIEW (PORTABLE) Stat Exams 01/20/24 05:37 Taken CBC W DIFF Stat Lab 01/20/24 05:55 Completed CMP Stat Lab 01/20/24 05:55 Completed D-DIMER QUANTITATIVE Stat Lab 01/20/24 05:55 Completed LIPASE Stat Lab 01/20/24 05:55 Completed Lactic Acid Stat Lab 01/20/24 05:50 Completed NT PRO BNPII Stat Lab 01/20/24 05:55 Completed TROPONIN Q4H Lab 01/20/24 05:55 Completed TROPONIN Q4H Lab 01/20/24 09:45 Ordered TROPONIN Q4H Lab 01/20/24 13:45 Ordered Medication Summary Generic Name Dose Route Start Last Admin Trade Name Freq PRN Reason Stop Dose Admin Sodium Chloride 1,000 mls @ 50 mls/hr 01/20/24 05:45 01/20/24 05:53 Sodium Chloride 0.9% 1000 Ml IV 02/19/24 05:44 50 mls/hr .Q20H MIRANDA Administration Discontinued Medications Generic Name Dose Route Start Last Admin Trade Name Freq PRN Reason Stop Dose Admin Aspirin 324 mg 01/20/24 05:39 01/20/24 05:52 Aspirin 81 Mg Tab.Chew PO 01/20/24 05:40 324 mg STAT ONE Administration Aspirin Confirm 01/20/24 05:51 Aspirin 81 Mg Tab.Chew Administered 01/20/24 05:52 Dose 324 mg .ROUTE .ST-MED ONE Lab/Rad Data: Laboratory Result Diagrams 01/20/24 05:55 01/20/24 05:55 Laboratory Results 01/20/24 01/20/24 01/20/24 Range/Units 05:55 05:55 05:55 WBC (3.98-10.04) x10^3/uL RBC (3.93-5.22) x10^6/uL Hgb (11.2-15.7) g/dL Hct (34.1-44.9) % MCV (79.4-94.8) fL MCH (25.6-32.2) pg MCHC (32.2-35.5) g/dL RDW (11.7-14.4) % Plt Count (182-369) x10^3/uL MPV (9.4-12.3) fL Gran % (34.0-71.1) % Immature Gran % (Auto) (0.001-0.429) % Nucleat RBC Rel Count (0.00-0.2) % Eos # (Auto) (0.04-0.36) x10^3/uL Immature Gran # (Auto) (0.001-0.031) x10^3u/L Absolute Lymphs (auto) (1.18-3.74) x10^3/uL Absolute Monos (auto) (0.24-0.86) x10^3/uL Absolute Nucleated RBC (0.00-0.012) x10^3u/L Lymphocytes % (19.3-51.7) % Monocytes % (4.7-12.5) % Eosinophils % (0.7-5.8) % Basophils % (0.1-1.2) % Absolute Granulocytes (1.56-6.13) x10^3/uL Basophils # (0.01-0.08) x10^3/uL D-Dimer 0.31 (0.0-0.50) mg/L Sodium (135-145) mmol/L Potassium (3.5-5.1) mmol/L Chloride (98-107) mmol/L Carbon Dioxide (22-30) mmol/L Anion Gap (5-15) MEQ/L BUN (7-17) mg/dL Creatinine (0.52-1.04) mg/dL Estimated GFR ML/MIN Glucose (74-106) mg/dL Lactic Acid (0.4-2.0) Calcium (8.4-10.2) mg/dL Total Bilirubin (0.2-1.3) mg/dL AST (14-36) U/L ALT (0-35) U/L Alkaline Phosphatase (38-126) U/L Troponin I < 0.012 (0.000-0.033) ng/mL NT-Pro-B Natriuret Pep 714 (<300) pg/mL Serum Total Protein (6.3-8.2) g/dL Albumin (3.5-5.0) g/dL Lipase (23-300) U/L 01/20/24 01/20/24 01/20/24 Range/Units 05:55 05:55 05:50 WBC 6.9 (3.98-10.04) x10^3/uL RBC 4.20 (3.93-5.22) x10^6/uL Hgb 13.1 (11.2-15.7) g/dL Hct 40.3 (34.1-44.9) % MCV 96.0 H (79.4-94.8) fL MCH 31.2 (25.6-32.2) pg MCHC 32.5 (32.2-35.5) g/dL RDW 13.8 (11.7-14.4) % Plt Count 394 H (182-369) x10^3/uL MPV 9.2 L (9.4-12.3) fL Gran % 64.8 (34.0-71.1) % Immature Gran % (Auto) 0.4 (0.001-0.429) % Nucleat RBC Rel Count 0.0 (0.00-0.2) % Eos # (Auto) 0.04 (0.04-0.36) x10^3/uL Immature Gran # (Auto) 0.03 (0.001-0.031) x10^3u/L Absolute Lymphs (auto) 1.68 (1.18-3.74) x10^3/uL Absolute Monos (auto) 0.60 (0.24-0.86) x10^3/uL Absolute Nucleated RBC 0.00 (0.00-0.012) x10^3u/L Lymphocytes % 24.5 (19.3-51.7) % Monocytes % 8.8 (4.7-12.5) % Eosinophils % 0.6 L (0.7-5.8) % Basophils % 0.9 (0.1-1.2) % Absolute Granulocytes 4.44 (1.56-6.13) x10^3/uL Basophils # 0.06 (0.01-0.08) x10^3/uL D-Dimer (0.0-0.50) mg/L Sodium 139 (135-145) mmol/L Potassium 4.1 (3.5-5.1) mmol/L Chloride 103 (98-107) mmol/L Carbon Dioxide 26 (22-30) mmol/L Anion Gap 13.7 (5-15) MEQ/L BUN 21 H (7-17) mg/dL Creatinine 1.24 H (0.52-1.04) mg/dL Estimated GFR 46.5 ML/MIN Glucose 142 H (74-106) mg/dL Lactic Acid 2.7 H (0.4-2.0) Calcium 9.8 (8.4-10.2) mg/dL Total Bilirubin 0.70 (0.2-1.3) mg/dL AST 38 H (14-36) U/L ALT 29 (0-35) U/L Alkaline Phosphatase 93 (38-126) U/L Troponin I (0.000-0.033) ng/mL NT-Pro-B Natriuret Pep (<300) pg/mL Serum Total Protein 7.3 (6.3-8.2) g/dL Albumin 4.2 (3.5-5.0) g/dL Lipase 43 (23-300) U/L - Progress Progress: improved, re-examined Air Movement: good Progress Note: 01/20/24 05:49 discussed with [facility] In Dr. Cuevas at [facility] in consultation - he agrees the pt is in complete ht block and accepted her as a pt there. 01/20/24 06:05 pt was given the ASA in ER here. 01/20/24 06:07 CP noted to have stopped , and pt is comfortable resting without further SOBreath at this time. Blood Culture(s) Obtained: No Antibiotics given: No Discussed with Dr.: Other (Dr Cuevas - [facility]) Will see patient in: hospital (full admit) Counseled pt/family regarding: lab results, diagnosis, need for follow-up, rad results Medical Desision Making - Independent Historian Additional History obtained from: Family - Discussion of managment Care discussed with:: specialist Reviewed:: Test results, Need for additional workup Agreed on:: Treatment plan, need for follow-up, decision to admit Will see patient: in hospital - Diagnostic Testing Diagnostic test were ordered, analyzed, and reviewed by me: Yes Radiological Interpretation: Reviewed by me - Risk of complications The pt has a mod risk of morbidity or mortality based on: Need for prescription drug management The pt has a high risk of morbidity or mortality based on: Decision regarding hospitilization or escalation of hosp level of care - Departure Departure Disposition: Transfer Clinical Impression: Third degree heart block, Coronary artery disease Condition: Serious Critical Care Time: Yes Critical Care Time(excluding separately billable procedures): Critical 30-74 mins Referrals: JOSE MICHELLE MD [Primary Care Provider] - Follow up/PCP as directed
[2024-01-20 05:43] VITALS: TEMP 97.1
[2024-01-20] MEDS ORDERED: Sodium Chloride 0.9% 1000 ML 1,000 ML ONE (05:51)
[2024-01-20] MEDS ORDERED: BABY ASPIRIN 81 MG CHEW ONE (05:51)
[2024-01-20] MEDS: BABY ASPIRIN 81 MG CHEW PO ONE (05:52)
[2024-01-20] MEDS: Sodium Chloride 0.9% 1000 ML 1,000 ML IV SCH (05:53)
[2024-01-20 06:06] LABS: Absolute Neutrophil Ct (ANC) 4.44 x10^3/uL (1.56-6.13); BASOPHIL % 0.9 % (0.1-1.2); Basophil (Absolute #) 0.06 x10^3/uL (0.01-0.08); Eosinophil % 0.6 % (0.7-5.8); Eosinophil (Absolute #) 0.04 x10^3/uL (0.04-0.36); Hematocrit 40.3 % (34.1-44.9); Hemoglobin 13.1 g/dL (11.2-15.7); IMMATURE GRAN # 0.03 x10^3u/L (0.001-0.031); IMMATURE GRAN % 0.4 % (0.001-0.429); Lymphocyte (Absolute #) 1.68 x10^3/uL (1.18-3.74); Lymphocytes % 24.5 % (19.3-51.7); Mean Corpuscular Hemoglobin 31.2 pg (25.6-32.2); Mean Corpuscular Hgb Concent. 32.5 g/dL (32.2-35.5); Mean Platelet Volume 9.2 fL (9.4-12.3); Monocytes % 8.8 % (4.7-12.5); Neutrophil % 64.8 % (34.0-71.1); Platelet Count 394 x10^3/uL (182-369); Red Cell Distribution Width 13.8 % (11.7-14.4); White Blood Count 6.9 x10^3/uL (3.98-10.04)
[2024-01-20 06:11] LABS: ALBUMIN 4.2 g/dL (3.5-5.0); ANION GAP 13.7 MEQ/L (5-15); BILIRUBIN,TOTAL 0.7 mg/dL (0.2-1.3); Calcium 9.8 mg/dL (8.4-10.2); Creatinine 1 1.24 mg/dL (0.52-1.04); EST GLOMERULAR FILTRATION RATE 46.5 ML/MIN; Potassium 4.1 mmol/L (3.5-5.1); Total Protein 7.3 g/dL (6.3-8.2)
--- NOTE | 2024-01-20 06:47 | XRAY ---
Indication: Chest pain. Comparison: December 27, 2023 Portable chest unchanged again inflated and clear. Heart not enlarged again with CABG. Bony thorax intact again with osteopenia and degenerative changes. No new/acute findings.
[2024-01-20 09:14] VITALS: BP 121/36; PULSE 37; RESP 21; O2SAT 95
== END 2024-01-20 09:31 | disposition short-term general hospital (02) ==
LOC: ED 05:13
DX: I44.2 Atrioventricular block, complete (principal); I25.10 Atherosclerotic heart disease of native coronary artery without angina pectoris; R06.02 Shortness of breath; Z79.02 Long term (current) use of antithrombotics/antiplatelets; Z79.899 Other long term (current) drug therapy
CPT/HCPCS: 36000; 36415; 71045; 80053; 83605; 83690; 83880; 84484; 85025; 85379; 93005; 94760; 99285; 99291; A9270-GY

== ENCOUNTER 2024-08-17 16:21 | Emergency (ER) | payer MEDICARE ==
--- NOTE | 2024-08-17 17:04 | XRAY ---
CLINICAL HISTORY: stroke protocol, slurred speech COMPARISON: None TECHNIQUE: Axial non-contrast CT scan of the brain was performed from the skull base to the high parietal region. One of the following dose reduction techniques were utilized for this exam: Automated exposure control, adjustment of the mA and/or kV according to patient size, use of iterative reconstruction. FINDINGS: Right parietal cortical and subcortical area of encephalomalacia, with no mass effect. Mild symmetrical dilatation of the supratentorial ventricles. Deepening of the cortical sulci, basal cisterns and sylvian fissures. Normal CT features of the basal ganglia, internal capsules and thalami. No shift of midline structures was detected. No intra or extra-axial collections. Normal posterior fossa structures. IMPRESSION: 1. Right parietal cortical and subcortical area of encephalomalacia, with no mass effect. 2. No acute territorial infarction, hemorrhagic pathology 3. Generalized involutional changes 4. Early changes of acute ischemic infarct may sometimes not be detected on a CT scan. If clinically suspicious, MRI with diffusion-weighted imaging may be recommended for further evaluation. [facility] was called at at 3:55 PM [employer] 08/17/2024 and [facility] was informed regarding the negative stroke results. Electronically Signed by: Geovanna Abad MD. (08/17/2024 16:59:10 EST)
[2024-08-17 17:11] VITALS: TEMP 98.8
--- NOTE | 2024-08-17 17:20 | ERPHSYRPT ---
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 reports pt had just brought groceries into the house, reported a dull ABDI and took some tylenol, shortly after the ABDI began she started to mix her words, reports pt repeatedly called her cell phone a sandwich and then her word finding difficulties have progressed slightly. Pt denies any pain, is able to participate minimally in exam. Timing/Duration: today (1599) Severity: moderate Character of Deficits: impaired speech Deficits: no difficulties Baseline/Normal Cognition: alert oriented x 3 Current Cognition: alert but confused Baseline Gait: walks w/o assistance Associated Symptoms: confusion, headache, No vision changes Allergies/Adverse Reactions: latex Allergy (Verified 01/20/24 05:19) Home Medications: Clopidogrel Bisulfate [Clopidogrel] 75 mg PO HS 12/27/23 [History] Isosorbide Mononitrate [Isosorbide Mononitrate ER] 30 mg PO DAILY 12/27/23 [History] Rosuvastatin Calcium 5 mg PO HS 12/27/23 [History] Torsemide 20 mg [Demadex 20 mg] 20 mg PO DAILY 12/27/23 [History] Nitroglycerin 0.4 mg Tablet [Nitrostat 0.4 MG Tablet] 0.4 mg SL Q5MIN PRN MR X 3 PRN 01/20/24 [History] Multivit-Min/Iron/Folic/Lutein [Multivitamin Women 50 Plus Tab] 1 tab PO DAILY 08/17/24 [History] Hx Tetanus, Diphtheria Vaccination/Date Given: No Hx Influenza Vaccination/Date Given: Yes Hx Pneumococcal Vaccination/Date Given: Yes Travel Risk - Emerging Infectious Disease Are you exhibiting symptoms associated with any current EIDs: No Symptoms: Shortness of Breath - Past Medical History Pertinent Past Medical History: Yes Neurological History: Stroke ENT History: Cataracts Cardiac History: Other Respiratory History: No Pertinent History Endocrine Medical History: No Pertinent History Musculoskeletal History: No Pertinent History GI Medical History: Gallbladder Disease History: No Pertinent History Psycho-Social History: No Pertinent History Female Reproductive Disorders: No Pertinent History Other Medical History: hodgkins, 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 - Past Surgical History Past Surgical History: Yes Neuro Surgical History: No Pertinent History Cardiac: CABG Respiratory: No Pertinent History Gastrointestinal: Cholecystectomy Female Surgical History: Hysterectomy Other Surgical History: exploritory surgery- for hodgkins Significant Family History: no pertinent family hx (No family history pertaining to this admission reported.) - Social History Smoking Status: Never smoker Exposure to second hand smoke: No Drug Use: none - Social Determinants of Health Will the patient participate in the screening: Yes Do you worry about a steady place to live?: No In the past 12 months,have you had to go without utilities?: No Transportation Issues: No Has anyone in your support network made you feel unsafe?: No Have you or anyone in your house had to go w/o enough food: No - Nursing Vital Signs Nursing Vital Signs: Initial Vital Signs Temperature 98.8 F 08/17/24 16:43 Pulse Rate 60 08/17/24 16:43 Respiratory Rate 32 H 08/17/24 16:43 Blood Pressure 153/54 08/17/24 16:43 O2 Sat by Pulse Oximetry 95 08/17/24 16:43 Pain Scale Pain Intensity 0 - [place] Coma Scale Best Eye Response (Alex): (4) open spontaneously Best Verbal Response ([place]): (3) inappropriate words Best Motor Response ([place]): (6) obeys commands [place] Total: 13 - Physical Exam General Appearance: no apparent distress Eye Exam: bilateral eye: normal inspection, PERRL, EOMI Ears, Nose, Throat Exam: normal ENT inspection, TMs normal, pharynx normal Neck Exam: normal inspection, non-tender Respiratory: normal breath sounds, lungs clear, airway intact, No chest tenderness, No respiratory distress Cardiovascular: regular rate/rhythm, normal heart sounds, normal peripheral pulses Extremity Exam: normal inspection Mental Status: alert, agitated, disoriented to place, 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 Exam: PERRL, abnormal speech, tongue midline, No facial droop Motor/Sensory: no motor deficit, no sensory deficit, no pronator drift SpO2 Interpretation: normal SpO2: 95 O2 Delivery: Room Air - Course EKG Interpreted by Me: RATE (62), Non-specific ST Changes, Other (ventricularly paced rhythm, not suggestive of acute ischemia) Ordered Tests: Active Orders 24 hr Category Date Time Status NPO (ED) STAT Care 08/17/24 16:32 Active Tele-Health Consult ROUTINE Cons 08/17/24 18:55 Active CHEST 1 VIEW (PORTABLE) Stat Exams 08/17/24 16:[address] ANGIOGRAPHY NECK [CT] Stat Exams 08/17/24 17:01 Taken CTA HEAD W AND/OR WO CONTRAST [CT] Stat Exams 08/17/24 16:56 Taken HEAD WITHOUT CONTRAST [CT] Stat Exams 08/17/24 16:33 Completed BMP Stat Lab 08/17/24 17:15 Completed CBC W DIFF Stat Lab 08/17/24 17:15 Completed CULTURE,URINE Stat Lab 08/17/24 17:24 Received ETHYL ALCOHOL Stat Lab 08/17/24 17:15 Completed POCT GLUCOSE Stat Lab 08/17/24 17:12 Completed PTT Stat Lab 08/17/24 17:15 Completed TROPONIN Q4H Lab 08/17/24 17:15 Completed TROPONIN Q4H Lab 08/17/24 20:45 Ordered TROPONIN Q4H Lab 08/18/24 00:45 Ordered UA W/RFX UR CULTURE Stat Lab 08/17/24 17:24 Received Urine Triage Profile Stat Lab 08/17/24 17:24 Received Medication Summary Discontinued Medications Generic Name Dose Route Start Last Admin Trade Name Freq PRN Reason Stop Dose Admin Alteplase, Recombinant 82.6 mg 08/17/24 17:47 08/17/24 18:44 Alteplase 100 Mg Vial IV 08/17/24 17:48 82.6 mg STAT STA Administration Lab/Rad Data: Laboratory Result Diagrams 08/17/24 17:15 08/17/24 17:15 Laboratory Results 08/17/24 08/17/24 08/17/24 Range/Units 17:24 17:24 17:15 WBC (3.98-10.04) x10^3/uL RBC (3.93-5.22) x10^6/uL Hgb (11.2-15.7) g/dL Hct (34.1-44.9) % MCV (79.4-94.8) fL MCH (25.6-32.2) pg MCHC (32.2-35.5) g/dL RDW (11.7-14.4) % Plt Count (182-369) x10^3/uL MPV (9.4-12.3) fL Gran % (34.0-71.1) % Immature Gran % (Auto) (0.001-0.429) % Nucleat RBC Rel Count (0.00-0.2) % Eos # (Auto) (0.04-0.36) x10^3/uL Immature Gran # (Auto) (0.001-0.031) x10^3u/L Absolute Lymphs (auto) (1.18-3.74) x10^3/uL Absolute Monos (auto) (0.24-0.86) x10^3/uL Absolute Nucleated RBC (0.00-0.012) x10^3u/L Lymphocytes % (19.3-51.7) % Monocytes % (4.7-12.5) % Eosinophils % (0.7-5.8) % Basophils % (0.1-1.2) % Absolute Granulocytes (1.56-6.13) x10^3/uL Basophils # (0.01-0.08) x10^3/uL APTT (25.1-36.5) SECONDS Sodium (135-145) mmol/L Potassium (3.5-5.1) mmol/L Chloride (98-107) mmol/L Carbon Dioxide (22-30) mmol/L Anion Gap (5-15) MEQ/L BUN (7-17) mg/dL Creatinine (0.52-1.04) mg/dL Estimated GFR ML/MIN Glucose (74-106) mg/dL POC Glucometer (74 to 106) mg/dL Calcium (8.4-10.2) mg/dL Troponin I < 0.012 (0.000-0.033) ng/mL Urine Color Yellow (Yellow) Urine Appearance Clear (Clear) Urine pH 5.5 (4.6-8.0) Ur Specific [place] 1.015 (1.005-1.030) Urine Protein Trace A (Negative) Urine Glucose (UA) Negative (Negative) mg/dL Urine Ketones Negative (Negative) Urine Blood Negative (Negative) Urine Nitrite Negative (Negative) Urine Bilirubin Negative (Negative) Urine Urobilinogen 1.0 A (0.2) mg/dL Ur Leukocyte Esterase Negative (Negative) U Hyaline Cast (Auto) 11-20 (0-2) /LPF Urine Microscopic RBC 0-2 (0-5) /HPF Urine Microscopic WBC 11-20 A (0-5) /HPF Ur Epithelial Cells None Seen (None Seen) /HPF Urine Bacteria None Seen (None Seen) /HPF Urine Culture Reflexed YES (NO) Urine Opiates Level NEGATIVE (NEGATIVE) Ur Methadone NEGATIVE (NEGATIVE) Urine Barbiturates NEGATIVE (NEGATIVE) Ur Phencyclidine (PCP) NEGATIVE (NEGATIVE) Urine Amphetamine NEGATIVE (NEGATIVE) U Benzodiazepine Level NEGATIVE (NEGATIVE) Urine Cocaine NEGATIVE (NEGATIVE) Urine Marijuana (THC) NEGATIVE (NEGATIVE) Ethyl Alcohol (0-10) mg/dL 08/17/24 08/17/24 08/17/24 Range/Units 17:15 17:15 17:15 WBC 6.4 (3.98-10.04) x10^3/uL RBC 4.48 (3.93-5.22) x10^6/uL Hgb 13.3 (11.2-15.7) g/dL Hct 41.2 (34.1-44.9) % MCV 92.0 (79.4-94.8) fL MCH 29.7 (25.6-32.2) pg MCHC 32.3 (32.2-35.5) g/dL RDW 15.4 H (11.7-14.4) % Plt Count 283 (182-369) x10^3/uL MPV 9.7 (9.4-12.3) fL Gran % 54.0 (34.0-71.1) % Immature Gran % (Auto) 0.2 (0.001-0.429) % Nucleat RBC Rel Count 0.0 (0.00-0.2) % Eos # (Auto) 0.13 (0.04-0.36) x10^3/uL Immature Gran # (Auto) 0.01 (0.001-0.031) x10^3u/L Absolute Lymphs (auto) 2.04 (1.18-3.74) x10^3/uL Absolute Monos (auto) 0.68 (0.24-0.86) x10^3/uL Absolute Nucleated RBC 0.00 (0.00-0.012) x10^3u/L Lymphocytes % 32.0 (19.3-51.7) % Monocytes % 10.7 (4.7-12.5) % Eosinophils % 2.0 (0.7-5.8) % Basophils % 1.1 (0.1-1.2) % Absolute Granulocytes 3.44 (1.56-6.13) x10^3/uL Basophils # 0.07 (0.01-0.08) x10^3/uL APTT 24.4 L (25.1-36.5) SECONDS Sodium 140 (135-145) mmol/L Potassium 4.3 (3.5-5.1) mmol/L Chloride 105 (98-107) mmol/L Carbon Dioxide 20 L (22-30) mmol/L Anion Gap 18.9 H (5-15) MEQ/L BUN 24 H (7-17) mg/dL Creatinine 0.91 (0.52-1.04) mg/dL Estimated GFR 67.5 ML/MIN Glucose 119 H (74-106) mg/dL POC Glucometer (74 to 106) mg/dL Calcium 9.2 (8.4-10.2) mg/dL Troponin I (0.000-0.033) ng/mL Urine Color (Yellow) Urine Appearance (Clear) Urine pH (4.6-8.0) Ur Specific [place] (1.005-1.030) Urine Protein (Negative) Urine Glucose (UA) (Negative) mg/dL Urine Ketones (Negative) Urine Blood (Negative) Urine Nitrite (Negative) Urine Bilirubin (Negative) Urine Urobilinogen (0.2) mg/dL Ur Leukocyte Esterase (Negative) U Hyaline Cast (Auto) (0-2) /LPF Urine Microscopic RBC (0-5) /HPF Urine Microscopic WBC (0-5) /HPF Ur Epithelial Cells (None Seen) /HPF Urine Bacteria (None Seen) /HPF Urine Culture Reflexed (NO) Urine Opiates Level (NEGATIVE) Ur Methadone (NEGATIVE) Urine Barbiturates (NEGATIVE) Ur Phencyclidine (PCP) (NEGATIVE) Urine Amphetamine (NEGATIVE) U Benzodiazepine Level (NEGATIVE) Urine Cocaine (NEGATIVE) Urine Marijuana (THC) (NEGATIVE) Ethyl Alcohol < 10 (0-10) mg/dL 08/17/24 Range/Units 17:12 WBC (3.98-10.04) x10^3/uL RBC (3.93-5.22) x10^6/uL Hgb (11.2-15.7) g/dL Hct (34.1-44.9) % MCV (79.4-94.8) fL MCH (25.6-32.2) pg MCHC (32.2-35.5) g/dL RDW (11.7-14.4) % Plt Count (182-369) x10^3/uL MPV (9.4-12.3) fL Gran % (34.0-71.1) % Immature Gran % (Auto) (0.001-0.429) % Nucleat RBC Rel Count (0.00-0.2) % Eos # (Auto) (0.04-0.36) x10^3/uL Immature Gran # (Auto) (0.001-0.031) x10^3u/L Absolute Lymphs (auto) (1.18-3.74) x10^3/uL Absolute Monos (auto) (0.24-0.86) x10^3/uL Absolute Nucleated RBC (0.00-0.012) x10^3u/L Lymphocytes % (19.3-51.7) % Monocytes % (4.7-12.5) % Eosinophils % (0.7-5.8) % Basophils % (0.1-1.2) % Absolute Granulocytes (1.56-6.13) x10^3/uL Basophils # (0.01-0.08) x10^3/uL APTT (25.1-36.5) SECONDS Sodium (135-145) mmol/L Potassium (3.5-5.1) mmol/L Chloride (98-107) mmol/L Carbon Dioxide (22-30) mmol/L Anion Gap (5-15) MEQ/L BUN (7-17) mg/dL Creatinine (0.52-1.04) mg/dL Estimated GFR ML/MIN Glucose (74-106) mg/dL POC Glucometer 109 H (74 to 106) mg/dL Calcium (8.4-10.2) mg/dL Troponin I (0.000-0.033) ng/mL Urine Color (Yellow) Urine Appearance (Clear) Urine pH (4.6-8.0) Ur Specific [place] (1.005-1.030) Urine Protein (Negative) Urine Glucose (UA) (Negative) mg/dL Urine Ketones (Negative) Urine Blood (Negative) Urine Nitrite (Negative) Urine Bilirubin (Negative) Urine Urobilinogen (0.2) mg/dL Ur Leukocyte Esterase (Negative) U Hyaline Cast (Auto) (0-2) /LPF Urine Microscopic RBC (0-5) /HPF Urine Microscopic WBC (0-5) /HPF Ur Epithelial Cells (None Seen) /HPF Urine Bacteria (None Seen) /HPF Urine Culture Reflexed (NO) Urine Opiates Level (NEGATIVE) Ur Methadone (NEGATIVE) Urine Barbiturates (NEGATIVE) Ur Phencyclidine (PCP) (NEGATIVE) Urine Amphetamine (NEGATIVE) U Benzodiazepine Level (NEGATIVE) Urine Cocaine (NEGATIVE) Urine Marijuana (THC) (NEGATIVE) Ethyl Alcohol (0-10) mg/dL - Progress Progress: re-examined Progress Note: 08/17/24 17:45 CT head negative for acute hemorrhagic stroke pt continues to have significant receptive aphasia I spoke w/ tele neurologist Dr Arguelles who recommends TPA and transfer to tertiary facility as pt is w/in 4.5 hour window of sx onset w/ last known normal at 1600 I spoke w/ pt's and son regarding risks and benefits of TPA, they are both in agreement that they would like pt to receive thrombolytics will order at this time 08/17/24 17:59 08/17/24 19:02 I spoke with neurology at [facility][1] ([address] [place] [address]) Dr Chen who is willing to accept pt for transfer, pt will be transported to ER 08/17/24 19:23 will attempt transport via helicopter to [facility] I discussed pt case w/ Dr Mccoy who will assume care for pt now Counseled pt/family regarding: lab results, diagnosis, need for follow-up, rad results Medical Desision Making - Diagnostic Testing Diagnostic test were ordered, analyzed, and reviewed by me: Yes Radiological Interpretation: Reviewed by me, Teleradiologist Report - Risk of complications The pt has a high risk of morbidity or mortality based on: Decision regarding hospitilization or escalation of hosp level of care - Departure Departure Disposition: Transfer Clinical Impression: Ischemic stroke, received alteplase Condition: Fair Critical Care Time: Yes Critical Care Time(excluding separately billable procedures): Critical 75-104 mins Referrals: MIGUEL ANGEL,JOSE, MD [Primary Care Provider] - Follow up/PCP as directed
[2024-08-17 17:26] LABS: Absolute Neutrophil Ct (ANC) 3.44 x10^3/uL (1.56-6.13); BASOPHIL % 1.1 % (0.1-1.2); Basophil (Absolute #) 0.07 x10^3/uL (0.01-0.08); Eosinophil (Absolute #) 0.13 x10^3/uL (0.04-0.36); Hematocrit 41.2 % (34.1-44.9); Hemoglobin 13.3 g/dL (11.2-15.7); IMMATURE GRAN # 0.01 x10^3u/L (0.001-0.031); IMMATURE GRAN % 0.2 % (0.001-0.429); Lymphocyte (Absolute #) 2.04 x10^3/uL (1.18-3.74); Mean Corpuscular Hemoglobin 29.7 pg (25.6-32.2); Mean Corpuscular Hgb Concent. 32.3 g/dL (32.2-35.5); Mean Platelet Volume 9.7 fL (9.4-12.3); Monocyte (Absolute #) 0.68 x10^3/uL (0.24-0.86); Monocytes % 10.7 % (4.7-12.5); Platelet Count 283 x10^3/uL (182-369); Red Blood Count 4.48 x10^6/uL (3.93-5.22); Red Cell Distribution Width 15.4 % (11.7-14.4); White Blood Count 6.4 x10^3/uL (3.98-10.04)
[2024-08-17 17:40] LABS: ANION GAP 18.9 MEQ/L (5-15); BLOOD UREA NITROGEN 24 mg/dL (7-17); CHLORIDE 105 mmol/L (98-107); Calcium 9.2 mg/dL (8.4-10.2); Carbon Dioxide 20 mmol/L (22-30); Creatinine 1 0.91 mg/dL (0.52-1.04); EST GLOMERULAR FILTRATION RATE 67.5 ML/MIN; ETHYL ALCOHOL < 10 mg/dL (0-10); Glucose 119 mg/dL (74-106); Potassium 4.3 mmol/L (3.5-5.1); SODIUM 140 mmol/L (135-145)
[2024-08-17] MEDS: Activase 100 MG IV STA (18:44)
--- NOTE | 2024-08-17 19:10 | XRAY ---
Indication: Chest pain. Stroke. Comparison: January 12, 2024 Portable chest demonstrates new hazy right base interstitial alveolar opacities, pneumonia/pneumonitis. Heart not enlarged again with CABG. Bony thorax intact again with osteopenia and mild degenerative changes. New left pacemaker.
[2024-08-17 19:12] LABS: Amphetamine,Urine NEGATIVE (NEGATIVE); Barbiturate,Urine NEGATIVE (NEGATIVE); Benzodiazepine,Urine NEGATIVE (NEGATIVE); Cocaine,Urine NEGATIVE (NEGATIVE); Methadone,Urine NEGATIVE (NEGATIVE); Opiate,Urine NEGATIVE (NEGATIVE); PCP,Urine NEGATIVE (NEGATIVE); THC,Urine NEGATIVE (NEGATIVE)
[2024-08-17 19:13] LABS: Appearance Clear (Clear); Bacteria None Seen /HPF (None Seen); Bilirubin Negative (Negative); Blood Negative (Negative); Epithelial Cells None Seen /HPF (None Seen); Glucose, Urine Negative (Negative); Ketones Negative (Negative); Leukocyte Esterase Negative (Negative); Nitrite Negative (Negative); Ph 5.5 (4.6-8.0); Protein,Urine Dip Trace (Negative); RBC 0-2 /HPF (0-5); Specific Gravity 1.015 (1.005-1.030)
--- NOTE | 2024-08-17 20:08 | XRAY ---
CLINICAL HISTORY: dysarthria, stroke r/o COMPARISON: No previous studies are available for comparison. TECHNIQUE: CT angiography of the neck was performed following the intravenous contrast administration. Axial images were obtained from the aortic arch to the vertex. Coronal and sagittal reformatted images were also reviewed. One of the following dose reduction techniques was utilized for this exam. Automated exposure control, adjustment of the mA and/or kV according to patient size, and use of iterative reconstruction. One of these 3D techniques was utilized: Maximum Intensity Pixel (MIP), 3D Reconstructed Images, Volume Rendered Images, Surface Shaded Rendering. FINDINGS: Carotid Arteries: The common, internal, and external carotid arteries are patent bilaterally with no evidence of significant stenosis, aneurysm, or dissection. Small bilateral carotid bulb eccenteric calcified atheromatous plaques with no significant diameter reduction/stenosis. There is no evidence of atherosclerotic plaque causing significant luminal narrowing. Vertebral Arteries: The vertebral arteries are patent bilaterally with no evidence of significant stenosis, aneurysm, or dissection. Thyroid Gland: The thyroid gland is enlarged in size showing multiple bilobar and isthmic variable-sized hypodense nodules. Lymph Nodes: There is no evidence of significant lymphadenopathy in the neck. Soft Tissues: The soft tissues of the neck are unremarkable with no evidence of masses or abnormal collections. Additional Findings: Sternotomy wire sutures are noticed. There is a right pleural effusion. IMPRESSION: 1. Mild carotid atherosclerotic wall changes. No evidence of significant stenosis or occlusion. 2. Right pleural effusion. 3. Multinodular thyroid goiter. Electronically Signed by: Geovanna Abad MD. (08/17/2024 20:03:13 EST)
--- NOTE | 2024-08-17 20:18 | XRAY ---
CLINICAL HISTORY: dysarthria COMPARISON: CT head done earlier this day was reviewed 08/17/2024 15:25:01 TRAVEL DIRECTOR TECHNIQUE: CT angiography of the head was performed following the intravenous administration 100 ml isovue. Contiguous axial images were obtained from the base of the skull to the vertex. Coronal and sagittal reformatted images were also reviewed. One of these 3D techniques was utilized: Maximum Intensity Pixel (MIP), 3D Reconstructed Images, Volume Rendered Images, Surface Shaded Rendering. One of the following dose-reduction techniques was utilized for this exam. Automated exposure control, adjustment of the mA and/or kV according to patient size, and use of iterative reconstruction. FINDINGS: Intracranial Arteries: The intracranial arteries, including the anterior cerebral arteries, middle cerebral arteries, posterior cerebral arteries, basilar artery, and vertebral arteries, are all patent without evidence of significant stenosis, aneurysm, or dissection. There is no evidence of vascular malformations. [place]: The [place] is intact. All segments are well-visualized and normal in appearance. Left PCOM Venous System: The visualized portions of the venous system, including the dural venous sinuses, are patent with no evidence of thrombosis. Brain Parenchyma: The brain parenchyma shows no evidence of acute infarct, hemorrhage, or mass effect. Right posterior parietal cortical and subcortical cystic area of encephalomalacia. Involutional brain changes. Bones: The bony structures of the skull are intact without evidence of fracture or destructive lesions. Right frontal bone tiny osteoma related to its inner table. Soft Tissues: The visualized soft tissues of the head are unremarkable. Additional Findings: No other significant findings are noted. IMPRESSION: 1. Normal CT angiography of the head. No evidence of significant vascular abnormalities, acute infarction, or hemorrhage. 2. Right posterior parietal small encephalomalacia. Involutional brain changes. Electronically Signed by: Geovanna Abad MD. (08/17/2024 20:14:13 EST)
[2024-08-21 10:25] VITALS: BP 154/69; PULSE 72; RESP 24; O2SAT 96
== END 2024-08-17 23:02 | disposition short-term general hospital (02) ==
LOC: ED 16:21
DX: I63.40 Cerebral infarction due to embolism of unspecified cerebral artery (principal); R47.01 Aphasia; Z79.02 Long term (current) use of antithrombotics/antiplatelets; Z79.899 Other long term (current) drug therapy
CPT/HCPCS: 36415; 51702; 70450; 70496; 70498; 71045; 80048; 80307; 81001; 82077; 82947; 84484; 85025; 85730; 87086; 96374; 99291; 99292; Q3014; 99285; J2997